=== PATIENT | male | born 1965 | race Caucasian/White ===

== ENCOUNTER 2020-10-26 06:33 | Day surgery (SDC) | payer BC ==
[~2020-10-26 06:33] MED LIST: Lactated Ringers 1,000 ML IV SCH
[2020-10-26] MEDS ORDERED: Midazolam 1 MG/ML 2 ML SDV ONE (07:04)
[2020-10-26] MEDS ORDERED: Propofol 200 MG/20 ML SDV ONE ×2 (07:04→07:57)
--- NOTE | 2020-10-26 07:06 | PCM.PREANE ---
Preanesthetic Assessment - Anesthesia/Transfusion/Family Hx Anesthesia History: Prior Anesthesia Without Reaction Family History of Anesthesia Reaction: No Transfusion History: No Prior Transfusion(s) - Review of Systems General: No Symptoms Pulmonary: No Symptoms Cardiovascular: No Symptoms Gastrointestinal: No Symptoms Neurological: No Symptoms Other: Reports: None - Physical Assessment NPO Status Date: 10/26/20 NPO Status Time: 00:05 Vital Signs: Last Vital Signs Temp 97.5 F 10/26/20 06:40 Pulse 73 10/26/20 06:40 Resp 15 10/26/20 06:40 BP 137/85 10/26/20 06:40 Pulse Ox 100 10/26/20 06:40 Height: 5 ft 9 in Weight: 164 lb ASA Class: 2 Mental Status: Alert & Oriented x3 Airway Class: Mallampati = 2 Dentition: Reports: Normal Dentition ROM/Head Extension: Full Lungs: Clear to Auscultation, Normal Respiratory Effort Cardiovascular: Regular Rate, Regular Rhythm - Allergies Allergies/Adverse Reactions: Allergies Allergy/AdvReac Type Severity Reaction Status Date / Time No Known Allergies Allergy Verified 10/22/20 08:05 - Anesthesia Plan Pre-Op Medication Ordered: None - Acknowledgements Anesthesia Type Planned: General Anesthesia Pt an Appropriate Candidate for the Planned Anesthesia: Yes Alternatives and Risks of Anesthesia Discussed w Pt/Guardian: Yes Pt/Guardian Understands and Agrees with Anesthesia Plan: Yes Additional Comments: npo just started on bp meds recently no cv problems tob none etoh rare par no questions bmi 24 PreAnesthesia Questionnaire HEENT History: Reports: None Cardiovascular History: Reports: None Respiratory History: Reports: None Gastrointestinal History: Reports: Other (See Below) Other Gastrointestinal History: occasional heartburn Genitourinary History: Reports: Renal Calculus Musculoskeletal History: Reports: None Neurological History: Reports: None Psychiatric History: Reports: None Endocrine/Metabolic History: Reports: None Hematologic History: Reports: None Immunologic History: Reports: None Oncologic (Cancer) History: Reports: Basal Cell Carcinoma Dermatologic History: Reports: None - Past Surgical History Head Surgeries/Procedures: Reports: None HEENT Surgical History: Reports: None Cardiovascular Surgical History: Reports: None Respiratory Surgical History: Reports: None GI Surgical History: Reports: Hernia, Inguinal Male Surgical History: Reports: Vasectomy Endocrine Surgical History: Reports: None Neurological Surgical History: Reports: None Musculoskeletal Surgical History: Reports: None Oncologic Surgical History: Reports: None Dermatological Surgical History: Reports: Skin Biopsy - SUBSTANCE USE Tobacco Use Status *Q: Light Tobacco User Tobacco Use Within Last Twelve Months: Vaping Days Per Week of Alcohol Use: 7 Number of Drinks Per Day: 1 Total Drinks Per Week: 7 - HOME MEDS Home Medications: Home Meds tadalafiL [Tadalafil] 5 mg PO DAILY 10/22/20 [History] - CURRENT (IN HOUSE) MEDS Current Meds: Current Medications Lactated Ringer's (Ringers, Lactated) 1,000 mls @ 125 mls/hr IV ASDIRECTED [facility] Last Admin: 10/26/20 06:50 Dose: 125 mls/hr Documented by:
--- NOTE | 2020-10-26 08:21 | PCM.OPNOTE ---
- General Post-Op/Procedure Note Date of Surgery/Procedure: 10/26/20 Operative Procedure(s): Colonoscopy Pre Op Diagnosis: Desire for colorectal cancer screening Post-Op Diagnosis: No evidence of neoplasia Anesthesia Technique: MAC (ASA II) Primary Surgeon: Jem Hull Core Shaper: Yuly Baires Condition: Good Free Text/Narrative:: DICTATION [id number] CPT CODE 85261
[2020-10-26] MEDS ORDERED: Lactated Ringers 1,000 ML IV SCH (08:30)
--- NOTE | 2020-10-26 08:33 | PCM.POSTAN ---
POST ANESTHESIA ASSESSMENT - MENTAL STATUS Mental Status: Alert (no problems), Oriented - VITAL SIGNS Vital Signs: Last Vital Signs Temp 97.5 F 10/26/20 06:40 Pulse 73 10/26/20 08:28 Resp 16 10/26/20 08:28 BP 105/68 10/26/20 08:28 Pulse Ox 98 10/26/20 08:28 - RESPIRATORY Respiratory Status: Respiratory Rate WNL, Airway Patent, O2 Saturation Stable - CARDIOVASCULAR CV Status: Pulse Rate WNL, Blood Pressure Stable - GASTROINTESTINAL GI Status: No Symptoms - POST OP HYDRATION Hydration Status: Adequate & Stable
--- NOTE | 2020-10-26 08:59 | PCM48HPAN ---
Post Anesthesia Note - EVALUATION WITHIN 48HRS OF ANESTHETIC Vital Signs in Normal Range: Yes Patient Participated in Evaluation: Yes Respiratory Function Stable: Yes Airway Patent: Yes Cardiovascular Function Stable: Yes Hydration Status Stable: Yes Pain Control Satisfactory: Yes Nausea and Vomiting Control Satisfactory: Yes Mental Status Recovered: Yes Vital Signs: Last Vital Signs Temp 97.3 F 10/26/20 08:34 Pulse 64 10/26/20 08:34 Resp 14 10/26/20 08:34 BP 111/69 10/26/20 08:34 Pulse Ox 99 10/26/20 08:34
--- NOTE | 2020-10-26 09:06 | OR ---
SURGEON: Jem Hull M.D. DATE OF PROCEDURE: 10/26/2020 OPERATION PERFORMED: Colonoscopy. PRIMARY SURGEON: Jem Hull M.D. ANESTHESIA: MAC. ASA CLASSIFICATION: II. PREOPERATIVE DIAGNOSIS: Desire for colorectal cancer screening. POSTOPERATIVE DIAGNOSIS: No evidence of neoplasia. FRONT END DRIVER: store administrative assistant: KODI Simental student. DESCRIPTION OF PROCEDURE: The patient was taken to the endoscopy room and positioned on the endoscopy table in the left lateral decubitus position. Time-out was called for appropriate identification of the patient and procedure. Monitored anesthesia care was provided. The colonoscope was inserted into the rectum and advanced with minimal difficulty to the cecum. The cecum was identified by internal landmarks and external pressure. The colonoscope was retroflexed to visualize the ascending colon from below, then straightened, and slowly withdrawn. The cecum, ascending colon, hepatic flexure, transverse colon, splenic flexure, descending colon, sigmoid colon, and rectum were very well visualized. No tumors, polyps, diverticula, or angiodysplastic changes were noted anywhere in the lower gastrointestinal tract. Once the colonoscope was withdrawn to the rectum, it was again retroflexed to visualize the anal orifice from above. Again, no tumors or polyps were seen and there were no acute hemorrhoidal changes. The colonoscope was then straightened, the rectum aspirated, and the colonoscope removed. The patient tolerated the procedure well and was taken to recovery room in stable condition. OPAL / JAIRON /[id number]
== END 2020-10-26 09:15 | disposition home or self-care (01) ==
LOC: MW.SDS 06:33
PROVIDERS: ATTEND Surgery
DX: Z12.11 Encounter for screening for malignant neoplasm of colon (principal); N52.9 Male erectile dysfunction, unspecified; I10 Essential (primary) hypertension; F17.200 Nicotine dependence, unspecified, uncomplicated; Z98.890 Other specified postprocedural states
CPT/HCPCS: 45378; J2250; J2704; J7120

== ENCOUNTER 2024-05-13 06:26 | Day surgery (SDC) | payer BC ==
[~2024-05-13 06:26] MED LIST changes: -Lactated Ringers 1,000 ML IV SCH; +ceFAZolin 2 GM in Sodium Chloride 0.9% 50 ML IV ONE
[2024-05-13] MEDS ORDERED: Naloxone 0.4 MG/ML SDV IVPUSH PRN (07:01)
[2024-05-13] MEDS ORDERED: Morphine 2 MG/ML SYRINGE IVPUSH PRN (07:01)
[2024-05-13] MEDS ORDERED: fentaNYL 50 MCG/ML SDV IVPUSH PRN (07:01)
[2024-05-13] MEDS ORDERED: HYDROmorphone 1 MG/ML Syringe IVPUSH PRN (07:01)
[2024-05-13] MEDS: Lactated Ringers 1,000 ML IV SCH (07:01)
[2024-05-13] MEDS ORDERED: Albuterol 0.083% 2.5 MG/3 ML Neb Soln NEB PRN (07:01)
[2024-05-13] MEDS ORDERED: Ondansetron 4 MG/2 ML SDV IVPUSH PRN (07:01)
[2024-05-13] MEDS ORDERED: Phenylephrine HCl In 0.9% NaCl 1 MG/10 ML Syringe IVPUSH PRN (07:01)
[2024-05-13] MEDS ORDERED: Metoclopramide 10 MG/2 ML SDV IVPUSH PRN (07:01)
[2024-05-13] MEDS ORDERED: droPERidol 5 MG/2 ML SDV IVPUSH PRN (07:01)
[2024-05-13] MEDS ORDERED: Bupivacaine 0.5% 30 ML SDV ONE (07:21)
[2024-05-13] MEDS ORDERED: ceFAZolin 1 GM Vial ONE (07:21)
[2024-05-13] MEDS ORDERED: fentaNYL 250 MCG/5 ML SDV ONE (07:23)
[2024-05-13] MEDS ORDERED: Ketamine HCL/NACL, ISO-OSM 50 MG/5 ML Syringe ONE (07:23)
[2024-05-13] MEDS ORDERED: Morphine 10 MG/ML SDV ONE (07:23)
[2024-05-13] MEDS ORDERED: Ropivacaine 0.5% 5 MG/ML 30 ML SDV ONE (07:23)
[2024-05-13] MEDS ORDERED: Bupivacaine 0.25% 10 ML SDV ONE (07:23)
[2024-05-13] MEDS ORDERED: Propofol 200 MG/20 ML SDV ONE ×2 (07:23)
[2024-05-13] MEDS ORDERED: Lidocaine 2% 11 ML Jelly Filled Syringe ONE (07:26)
[2024-05-13] MEDS ORDERED: ePHEDrine 50 MG/ML SDV ONE (08:15)
[2024-05-13] MEDS ORDERED: Glycopyrrolate 0.2 MG/ML SDV ONE (08:15)
[2024-05-13] MEDS ORDERED: Ketorolac 30 MG/ML SDV ONE (08:24)
[2024-05-13] MEDS ORDERED: Ondansetron 4 MG/2 ML SDV ONE (08:24)
[2024-05-13] MEDS ORDERED: Dexamethasone 4 MG/ML 5 ML MDV ONE (08:24)
[2024-05-13] MEDS ORDERED: ceFAZolin 2 GM Vial ONE (08:27)
[2024-05-13] MEDS ORDERED: Acetaminophen/HYDROcodone 325-5 MG Tab PO PRN ×2 (09:29→09:59)
[2024-05-13] MEDS ORDERED: Lactated Ringers 1,000 ML IV SCH (09:30)
== END 2024-05-13 10:40 | disposition home or self-care (01) ==
LOC: MW.SDS 06:26
PROVIDERS: ATTEND Surgery
DX: K40.90 Unilateral inguinal hernia, without obstruction or gangrene, not specified as recurrent (principal); I10 Essential (primary) hypertension; Z79.899 Other long term (current) drug therapy
CPT/HCPCS: 49505; C1781; J0131; J0665; J0690; J1100; J1596; J1885; J2270; J2405; J2704; J2795; J3010; J3490; J7120; 00830; 64486; A9270-GY; J2272